=== PATIENT | female | born 2000 | race Caucasian/White ===

== ENCOUNTER 2020-08-03 07:51 | Inpatient (IN) | payer OTHER ==
[~2020-08-03] VITALS: Ht 167.6 cm; Wt 79.5 kg
[2020-08-03] MEDS ORDERED: NEWBORN KIT ONE (22:57)
[2020-08-03] MEDS ORDERED: LIDOCAINE 1%, 20ML ONE (22:57)
[2020-08-03] MEDS ORDERED: MISOPROSTOL 200 MCG TABLET ONE (22:58)
[2020-08-03] MEDS ORDERED: PLEASE ENTER HEIGHT AND WEIGHT MC SCH (23:45)
[2020-08-03] MEDS ORDERED: PLEASE ENTER ALLERGIES MC SCH (23:45)
[2020-08-04] MEDS ORDERED: OXYTOCIN 30U/ 0.9% NaCL 500ML 500 ML IV ONE
[2020-08-04] MEDS ORDERED: TERBUTALINE 1 MG/ML, 1ML SQ PRN
[2020-08-04] MEDS ORDERED: CALCIUM CARBONATE 500 MG TAB.CHEW PO PRN
[2020-08-04] MEDS ORDERED: ONDANSETRON 2MG/ML, 2ML IVPush PRN
[2020-08-04] MEDS ORDERED: MISOPROSTOL 25 MCG TABLET VG PRN
[2020-08-04] MEDS ORDERED: TERBUTALINE 1 MG/ML, 1ML IVPush PRN
[2020-08-04] MEDS ORDERED: FENTANYL PF 100 MCG/2ML IV PRN
[2020-08-04] MEDS ORDERED: D5%-LACTATED RINGERS 1,000 ML IV SCH
[2020-08-04] MEDS ORDERED: MISOPROSTOL 25 MCG TABLET ONE (00:08)
[2020-08-04 00:21] LABS: BASOPHILS % (AUTO) 1 % (0-1); EOSINOPHILS % (AUTO) 1 % (1-7); LYMPHOCYTES % (AUTO) 20 % (22-44); MEAN CORPUSCULAR HEMOGLOBIN 26.5 pg (27.0-34.8); MEAN CORPUSCULAR HGB CONC 33.5 g/dL (32.4-35.8); MEAN PLATELET VOLUME 9.7 fL (7.4-10.4); MONOCYTES % (AUTO) 9 % (2-9); NEUTROPHILS % (AUTO) 70 % (42-75); PLATELET COUNT 192 x10^3/uL (130-400); RED BLOOD COUNT 3.91 x10^6/uL (3.82-5.3); RED CELL DISTRIBUTION WIDTH 18.2 % (9.6-15.2)
[2020-08-04] MEDS ORDERED: NALOXONE 0.4 MG/ML, 1ML IVPush PRN ×2 (12:00→22:30)
[2020-08-04] MEDS ORDERED: LACTATED RINGERS 1,000 ML IVBOLUS PRN ×2 (12:00→22:30)
[2020-08-04] MEDS ORDERED: FENTANYL/BUPIV./NS/PF 250 ML EPIDCONT SCH ×2 (12:00→22:30)
[2020-08-04] MEDS ORDERED: EPHEDRINE 50 MG/ML, 1ML IVPush PRN ×2 (12:00→22:30)
[2020-08-04] MEDS ORDERED: LACTATED RINGERS 1,000 ML IV SCH ×2 (12:00)
[2020-08-04] MEDS: FENTANYL PF 100 MCG/2ML IVPush PRN (20:49)
[2020-08-04] MEDS: LACTATED RINGERS 1,000 ML IV SCH (22:30)
[2020-08-04] MEDS ORDERED: BUPIVACAINE 0.25% ONE (22:43)
[2020-08-05] MEDS ORDERED: BUPIVACAINE 0.25% ONE ×2 (07:18→08:39)
[2020-08-05] MEDS ORDERED: METOCLOPRAMIDE 5 MG/ML, 2ML ONE (07:54)
[2020-08-05] MEDS ORDERED: SODIUM CITRATE/CITRIC ACID 15 ML UDC ONE (07:55)
[2020-08-05] MEDS ORDERED: D5%-LACTATED RINGERS 1,000 ML IV SCH (08:00)
[2020-08-05] MEDS: FENTANYL PF 100 MCG/2ML IVPush PRN (13:06)
[2020-08-05] MEDS ORDERED: METHYLERGONOVINE 0.2 MG/ML IM PRN (13:30)
[2020-08-05] MEDS ORDERED: ACETAMINOPHEN 325 MG TABLET PO PRN ×2 (13:30)
[2020-08-05] MEDS ORDERED: OXYcodone/APAP 5/325MG TABLET PO PRN (13:30)
[2020-08-05] MEDS ORDERED: SIMETHICONE 80 MG CHEW TAB PO PRN (13:30)
[2020-08-05] MEDS ORDERED: ONDANSETRON 2MG/ML, 2ML IV PRN (13:30)
[2020-08-05] MEDS ORDERED: MISOPROSTOL 200 MCG TABLET PR PRN (13:30)
[2020-08-05] MEDS ORDERED: DOCUSATE 100 MG CAPSULE PO PRN (13:30)
[2020-08-05] MEDS: OXYTOCIN 30U/ 0.9% NaCL 500ML 500 ML IV SCH ×2 (13:52→23:30)
[2020-08-05] MEDS: IBUPROFEN 800 MG TABLET PO PRN (13:52)
[2020-08-05] MEDS: OXYcodone/APAP 5/325MG TABLET PO PRN (14:47)
[2020-08-05 16:00] VITALS: BP 104/64
[2020-08-05 20:05] VITALS: BP 110/69
[2020-08-05] MEDS: LACTATED RINGERS 1,000 ML IV SCH ×2 (20:05→22:30)
[2020-08-05 21:05] LABS: BASOPHILS % (AUTO) 0 % (0-1); EOSINOPHILS % (AUTO) 0 % (1-7); LYMPHOCYTES % (AUTO) 7 % (22-44); MEAN CORPUSCULAR HEMOGLOBIN 25.9 pg (27.0-34.8); MEAN PLATELET VOLUME 9.4 fL (7.4-10.4); MONOCYTES % (AUTO) 6 % (2-9); NEUTROPHILS % (AUTO) 86 % (42-75); PLATELET COUNT 195 x10^3/uL (130-400); RED BLOOD COUNT 3.63 x10^6/uL (3.82-5.3); RED CELL DISTRIBUTION WIDTH 18.7 % (9.6-15.2)
[2020-08-06 01:30] VITALS: BP 106/61
[2020-08-06 06:00] VITALS: BP 117/72
[2020-08-06] MEDS ORDERED: IBUP-1223 PO (06:02)
[2020-08-06] MEDS: OXYcodone/APAP 5/325MG TABLET PO PRN (06:14)
[2020-08-06] MEDS: IBUPROFEN 800 MG TABLET PO PRN (06:14)
[2020-08-06] MEDS: LACTATED RINGERS 1,000 ML IV SCH ×2 (06:30→14:30)
[2020-08-06 08:01] VITALS: BP 104/68
[2020-08-06] MEDS ORDERED: PRENATAL VIT/IRON/FA 1 EACH TABLET PO SCH (09:00)
[2020-08-06] MEDS: OXYTOCIN 30U/ 0.9% NaCL 500ML 500 ML IV SCH (09:30)
[2020-08-06 12:07] VITALS: BP 99/64
== END 2020-08-06 23:22 | disposition home or self-care (01) | DRG 807 ==
LOC: LDIP 22:40 → 2NW 08-05 15:00
PROVIDERS: ADMIT Student in an Organized Health Care Education/Training Program; ATTEND Student in an Organized Health Care Education/Training Program
PROC: 10E0XZZ Delivery of Products of Conception, External Approach (ICD-10-PCS; principal; 2020-08-05)
PROC: 0KQM0ZZ Repair Perineum Muscle, Open Approach (ICD-10-PCS; 2020-08-05)
PROC: 10907ZC Drainage of Amniotic Fluid, Therapeutic from Products of Conception, Via Natural or Artificial Opening (ICD-10-PCS; 2020-08-05)
PROC: 10H07YZ Insertion of Other Device into Products of Conception, Via Natural or Artificial Opening (ICD-10-PCS; 2020-08-05)
PROC: 3E0P7VZ Introduction of Hormone into Female Reproductive, Via Natural or Artificial Opening (ICD-10-PCS; 2020-08-05)
PROC: 0U7C7ZZ Dilation of Cervix, Via Natural or Artificial Opening (ICD-10-PCS; 2020-08-05)
PROC: 3E0R3BZ Introduction of Anesthetic Agent into Spinal Canal, Percutaneous Approach (ICD-10-PCS; 2020-08-05)
PROC: 00HU33Z Insertion of Infusion Device into Spinal Canal, Percutaneous Approach (ICD-10-PCS; 2020-08-05)
DX: O99.284 Endocrine, nutritional and metabolic diseases complicating childbirth (principal); Z37.0 Single live birth; O99.52 Diseases of the respiratory system complicating childbirth; E55.9 Vitamin D deficiency, unspecified; J45.909 Unspecified asthma, uncomplicated; Z20.822 Contact with and (suspected) exposure to COVID-19; Z80.3 Family history of malignant neoplasm of breast; Z82.3 Family history of stroke; Z3A.39 39 weeks gestation of pregnancy; Z83.3 Family history of diabetes mellitus; Z86.16 Personal history of COVID-19; Z88.0 Allergy status to penicillin; O70.1 Second degree perineal laceration during delivery
CPT/HCPCS: 36415; J7121; 85025; 86592; 86850; 86900; 87635; G0378; J3010; J2590; J7120